=== PATIENT | male | born 1980 | race Caucasian/White ===

== ENCOUNTER 2023-10-18 13:05 | Emergency (ER) | payer OTHER, MEDICAID ==
[~2023-10-18] VITALS: Ht 185.4 cm; Wt 75.0 kg
[2023-10-18] MEDS ORDERED: GABA800T11 PO (14:27)
[2023-10-18 14:31] VITALS: BP 122/77; PULSE 80; RESP 18; TEMP 98.5; O2SAT 98
== END 2023-10-18 14:32 | disposition home or self-care (01) ==
LOC: ER 13:06
DX: S06.9XAA Unspecified intracranial injury with loss of consciousness status unknown, initial encounter (principal); Z76.0 Encounter for issue of repeat prescription; X58.XXXA Exposure to other specified factors, initial encounter; Y93.89 Activity, other specified; Y92.89 Other specified places as the place of occurrence of the external cause; Y99.8 Other external cause status
CPT/HCPCS: 99281